=== PATIENT | female | born 1985 | race Two or more races ===

== ENCOUNTER → 2024-11-17 | Outpatient (CLI) | payer MEDICAID, SELFPAY ==
--- NOTE | 2024-11-17 09:13 | XR_ITS ---
Examination: AP chest single view Technique one AP upright portable chest single view Date and time: November 17, 2024 0918 hours Comparison October 01, 2021 INDICATIONS: Coughing 5 days. FINDINGS: Left perihilar left basilar pneumonia Prominent thoracic dextroscoliosis with orthopedic hardware Right lung clear IMPRESSION: Left perihilar left basilar pneumonia
== END | disposition home or self-care (01) ==
PROVIDERS: PCP Physician Assistant; Referring Provider Physician Assistant; Visit Provider Physician Assistant
DX: J18.9 Pneumonia, unspecified organism (principal)
CPT/HCPCS: 71046